=== PATIENT | male | born 1960 | race Caucasian/White ===

== ENCOUNTER 2016-12-16 07:24 | Emergency (ER) | payer BC ==
[2016-12-16] MEDS ORDERED: ERTAPENEM SODIUM 1 G in 0.9 % SODIUM CHLORIDE 100ML 100 ML IVPB ONE (08:05)
[2016-12-16 08:19] LABS: BASO % 0.3 % (0-6); EOS % 2.7 % (0-6); GRAN % 72.4 % (47-80); HEMATOCRIT 45.3 % (42.0-52.0); HEMOGLOBIN 15.2 gm/dl (14.0-18.0); MEAN CELL VOLUME 90.4 fl (81-97); MEAN CORPUSCULAR HEMOGLOBIN 30.3 pg (27-33); MEAN CORPUSCULAR HGB CONC 33.6 g/dl (32-36); MEAN PLATELET VOLUME 9.7 fl (7.4-10.4); MONO % 6.6 % (0-9); PLATELET COUNT 212 K/uL (130-400); RED BLOOD COUNT 5.01 M/uL (4.40-5.70); RED CELL DISTRIBUTION WIDTH 12.9 % (11.5-14.5); WHITE BLOOD COUNT W/O DIFF 6.4 K/uL (4.2-12.2)
--- NOTE | 2016-12-16 08:28 | Emergency Department Record ---
History of Present Illness - General Chief complaint: Abscess Stated complaint: ABSCESS IN GROIN AREA Time Seen by Provider: 12/16/16 07:56 Source: Patient Mode of Arrival: Ambulatory Limitations: No limitations - History of Present Illness Initial comments: pt has had abump [abscess, cyst0 for a year. over the last week it has gotten worse and started draining. it is exquisitely tender. MD complaint: Abscess/boil -: Year(s) Location: Genitals Severity: Severe Severity scale (1-10): 10 Quality: Sharp Consistency: Constant Improves with: None Worsens with: None Context: None Associated symptoms: Denies other symptoms Treatments Prior to Arrival: Antibiotic - Related Data Home Medications Medication Instructions Recorded Confirmed Last Taken Aspirin Chewable [Aspirin] 81 mg PO DAILY 01/23/14 12/16/16 Unknown Fish Oil 10,000 mg PO DAILY 01/23/14 12/16/16 Unknown Multivitamin [Multi-Vitamin Daily] 1 tab PO DAILY 01/23/14 12/16/16 Unknown Omeprazole [Omeprazole] 20 mg PO BID 01/23/14 12/16/16 Unknown Simvastatin [Simvastatin] 40 mg PO DAILY 01/23/14 12/16/16 Unknown Levothyroxine Sodium 150 mcg PO QD tab 01/18/16 12/16/16 Unknown Cephalexin 500 mg PO BID 12/16/16 12/16/16 Unknown Sulfamethoxazole/Trimethoprim 1 tab PO BID 12/16/16 12/16/16 Unknown [Bactrim Ds] Allergies Allergy/AdvReac Type Severity Reaction Status Date / Time No Known Drug Allergies Allergy Verified 12/16/16 07:38 Travel Screening - Travel/Exposure Within Last 30 Days Have you traveled within the last 30 days?: Yes Location Detail:: [place] - Travel Symptoms Symptom Screening: None Review of Systems Reviewed: No additional complaints except as noted below Constitutional: Reports: As per HPI. Denies: Chills, Fever, Malaise, Night sweats, Weakness, Weight change Eyes: Reports: As per HPI. Denies: Eye discharge, Eye pain, Photophobia, Vision change ENT: Reports: As per HPI. Denies: Congestion, Dental pain, Ear pain, Epistaxis , Hearing loss, Throat pain Respiratory: Reports: As per HPI. Denies: Cough, Dyspnea, Hemoptysis, Stridor, Wheezes Cardiovascular: Reports: As per HPI. Denies: Arrhythmia, Chest pain, Dyspnea on exertion, Edema, Murmurs, Orthopnea, Palpitations, Paroxysmal nocturnal dyspnea, Rheumatic Fever, Syncope Endocrine: Reports: As per HPI. Denies: Fatigue, Heat or cold intolerance, Polydipsia, Polyuria Gastrointestinal: Reports: As per HPI. Denies: Abdominal pain, Constipation, Diarrhea, Hematemesis, Hematochezia, Melena, Nausea, Vomiting Genitourinary: Reports: As per HPI. Denies: Dysuria, Frequency, Hematuria, Incontinence, Retention, Testicular pain, Testicular mass, Urgency Musculoskeletal: Reports: As per HPI. Denies: Arthralgia, Back pain, Gout, Joint swelling, Myalgia, Neck pain Skin: Reports: As per HPI. Denies: Bruising, Change in color, Change in hair/ nails, Lesions, Pruritus, Rash Neurological: Reports: As per HPI. Denies: Abnormal gait, Confusion, Headache, Numbness, Paresthesias, Seizure, Tingling, Tremors, Vertigo, Weakness Psychiatric: Reports: As per HPI. Denies: Anxiety, Auditory hallucinations, Depression, Homicidal thoughts, Suicidal thoughts, Visual hallucinations Hematological/Lymphatic: Reports: As per HPI. Denies: Anemia, Blood Clots, Easy bleeding, Easy bruising, Swollen glands Past Medical History - SOCIAL HISTORY Smoking Status: Never smoker Alcohol Use: None Drug Use: None - RESPIRATORY Hx Respiratory Disorders: No - CARDIOVASCULAR Hx Cardio Disorders: No - NEURO Hx Neuro Disorders: No - GI Hx GI Disorders: No - Hx Genitourinary Disorders: No - ENDOCRINE Hx Endocrine Disorders: No - MUSCULOSKELETAL Hx Musculoskeletal Disorders: No - PSYCH Hx Psych Problems: No - HEMATOLOGY/ONCOLOGY Hx Hematology/Oncology Disorders: Yes Hx Cancer: Yes (thyroid) Family Medical History Any Significant Family History?: Yes Hx Diabetes: Father, Mother, Brother/Sister Hx Heart Disease: Father, Mother *Stroke Comment: uncle Physical Exam - General General Appearance: Alert, Oriented x3, Cooperative, Mild distress - Head Head exam: Normal inspection - Eye Eye exam: Normal appearance, PERRL, EOMI Pupils: Normal accommodation - ENT ENT exam: Normal exam, Mucous membranes moist, Normal external ear exam, Normal orophraynx Ear exam: Normal external inspection. negative: External canal tenderness Nasal Exam: Normal inspection. negative: Discharge, Sinus tenderness Mouth exam: Normal external inspection, Tongue normal Teeth exam: Normal inspection. negative: Dental caries Throat exam: Normal inspection. negative: Tonsillar erythema, Tonsillar exudate - Neck Neck exam: Normal inspection, Full ROM. negative: Tenderness - Respiratory Respiratory exam: Normal lung sounds bilaterally. negative: Respiratory distress - Cardiovascular Cardiovascular Exam: Regular rate, Normal rhythm, Normal heart sounds - GI/Abdominal GI/Abdominal exam: Soft, Normal bowel sounds. negative: Tenderness - Rectal Rectal exam: Deferred - exam: Deferred - Extremities Extremities exam: Normal inspection, Full ROM, Normal capillary refill, Tenderness Image of Full Body: 1 - erythema, abscess, draining, exquisitely tender, size of a walnut w surrounding erythema - Back Back exam: Reports: Normal inspection, Full ROM. Denies: Muscle spasm, Rash noted, Tenderness - Neurological Neurological exam: Alert, CN II-XII intact, Normal gait, Oriented X3 - Psychiatric Psychiatric exam: Normal affect, Normal mood - Skin Skin exam: Dry, Intact, Normal color, Warm Course Vital Signs 12/16/16 07:29 Temperature 97.9 F Pulse Rate 68 Respiratory 20 Rate Blood Pressure 128/73 Pulse Ox 94 L - Reevaluation(s) Reevaluation #1: 12/16/16 08:31 dr magallanes called and is taking pt to surgery. Medical Decision Making - Lab Data Result diagrams: 12/16/16 08:12 12/16/16 08:12 Disposition Disposition: Admit Disposition: Still a Patient at [facility] Decision to Admit Date: 12/16/16 Decision to Admit Time: 08:32 Forms: Patient Portal Access
[2016-12-16 08:32] LABS: BLOOD UREA NITROGEN 20 mg/dL (9-20); EST GLOMERULAR FILTRATION RATE > 60 ml/min; GLUCOSE,RANDOM 102 mg/dL (70-110)
--- NOTE | 2016-12-16 13:31 | CT SCAN REPORT ---
EXAM: PELVIS CT WITHOUT CONTRAST HISTORY: LARGE PAINFUL CYST RIGHT GROIN, GETTING WORSE FOR TWO WEEKS. TECHNIQUE: Contiguous axial images from the L4 level to the proximal femora were obtained without IV contrast. Comparison: None. FINDINGS: There is a subcutaneous rounded area of increased attenuation measuring 7 mm in the right inguinal region. There is adjacent inflammatory fat stranding and skin thickening. The finding itself measures 2.1 x 2.3 x 2.6 cm. Mildly prominent right inguinal lymph nodes measuring up to 1.4 cm. No inguinal hernia. Mild aortic calcification. The visualized loops of small and large bowel are of normal caliber. No free intraperitoneal fluid or adenopathy of the pelvis. No lytic or blastic lesions. Moderate arthritic change of the right sacroiliac joint. Advanced arthritic change of the left L5-S1 facets. IMPRESSION: SUBCUTANEOUS HYPODENSE ROUNDED FOCUS IN THE RIGHT INGUINAL REGION WITH ADJACENT INFLAMMATORY FAT STRANDING MEASURING UP TO 2.4 CM WHICH MAY RELATE TO ABSCESS. REACTIVE ADENOPATHY RIGHT INGUINAL REGION. JOB NUMBER: [id number] MTDD
== END 2016-12-16 09:23 | disposition still patient (30) ==
LOC: ER 07:24
DX: L02.214 Cutaneous abscess of groin (principal)
CPT/HCPCS: 72192; 80048; 85025

== ENCOUNTER 2016-12-16 09:28 | Day surgery (SDC) | payer BC ==
[2016-12-16] MEDS ORDERED: ACETAMINOPHEN 1,000 MG/100 ML BTL IV ONE (12:24)
[2016-12-16] MEDS ORDERED: MIDAZOLAM HCL 2MG/2ML VIAL IV ONE (14:00)
[2016-12-16] MEDS ORDERED: BUPIVACAINE 0.25% W/EPI MPF 30ML VIAL IVP ONE (14:00)
[2016-12-16] MEDS ORDERED: ACETAMINOPHEN/CODEINE TABLET PO ONE (14:00)
[2016-12-16] MEDS ORDERED: FENTANYL PF 100MCG/2ML VIAL IV ONE (14:00)
[2016-12-16] MEDS ORDERED: PROPOFOL 10 MG/ML VIAL IV ONE (14:00)
[2016-12-16] MEDS ORDERED: LIDOCAINE 2% MDV (20MG/ML) 20ML VIAL IV ONE (14:00)
--- NOTE | 2016-12-17 12:13 | Operative Note ---
DATE OF SURGERY: 12/16/2016 Surgeon: Alfred Avery DO Referring: Juani Ross MD, FACP PREOPERATIVE DIAGNOSIS: Right inguinal abscess. POSTOPERATIVE DIAGNOSIS: Right inguinal abscess. OPERATION: I&D and debridement of right inguinal abscess. Indication: The patient is a 48-year-old male who states he has had inflamed abscess down here for about a year. This got worse yesterday and therefore he was seen in the ER. CT scan was done which did show a 2.4 cm abscess with surrounding inflammatory changes. He had some mild reactive lymphadenopathy noted as well. The patient states that he had an issue with thyroid cancer a couple years ago and is noted to have a PET scan that this area lit up in the past. Apparently no further investigation was done. PROCEDURE: Therefore, consent was signed, questions answered. He was taken to the Operating Room and placed in the supine position. Local IV sedation was given per the Department of Anesthesia. The patient's groin was shaved and the area prepped and draped in the usual fashion. The area around the abscess was anesthetized with a total of 8 mL of 0.25% Sensorcaine with epinephrine. An elliptical incision was made draining a fairly sizeable abscess cavity. The overlying skin was necrotic and therefore this was debrided. The wound was then irrigated and paced with Iodoform gauze. Culture, aerobic and anaerobic cultures were taken and tissue was sent for culture as well. He will continue the antibiotics he was given yesterday and I will see him back in about 2 weeks. CC: JUANI ROSS MD, FACP [facility]
== END 2016-12-16 13:40 | disposition home or self-care (01) ==
LOC: SUR 09:28
PROVIDERS: ATTEND Surgery
DX: L02.214 Cutaneous abscess of groin (principal); E03.9 Hypothyroidism, unspecified
CPT/HCPCS: 10060; 00400; 99285 ×2; 96365; 85025; 80048; 72192; J1335; J3010

== ENCOUNTER 2017-11-05 07:31 | Day surgery (SDC) | payer BC ==
[2017-11-05] MEDS ORDERED: SEVOFLURANE 250 ML INH ONE (07:32)
[2017-11-05] MEDS ORDERED: BUPIVACAINE 0.5% W/EPI MPF 30 ML VIAL IVP ONE (07:32)
[2017-11-05] MEDS ORDERED: SUCCINYLCHOLINE 20 MG/ML 10ML IVP ONE (07:32)
[2017-11-05] MEDS ORDERED: FENTANYL PF 100MCG/2ML VIAL IV ONE (07:32)
[2017-11-05] MEDS ORDERED: MIDAZOLAM HCL 2MG/2ML VIAL IV ONE (07:32)
[2017-11-05] MEDS ORDERED: PROPOFOL 10 MG/ML VIAL IV ONE (07:32)
[2017-11-05] MEDS ORDERED: ONDANSETRON HCL IV 4 MG/2 ML VIAL IVP ONE ×3 (07:32→12:30)
[2017-11-05] MEDS ORDERED: DEXAMETHASONE 4 MG/ML 1ML VIAL IVP ONE (07:32)
[2017-11-05] MEDS ORDERED: ROCURONIUM BROMIDE 50MG/5ML VIAL IV ONE (07:32)
[2017-11-05] MEDS ORDERED: LIDOCAINE 2% MDV (20MG/ML) 20ML VIAL IV ONE (07:32)
[2017-11-05] MEDS ORDERED: KETOROLAC 30 MG/ML VIAL IVP ONE ×2 (07:32→08:24)
[2017-11-05] MEDS ORDERED: 0.9 % SODIUM CHLORIDE 1,000 ML BAG IV ONE (07:37)
--- NOTE | 2017-11-05 07:43 | Emergency Department Record ---
History of Present Illness - General Chief complaint: Vomiting Stated complaint: VOMITING Time Seen by Provider: 11/05/17 07:36 Source: Patient, Family Mode of Arrival: Ambulatory Limitations: No limitations - History of Present Illness Initial comments: 57 yo male presents with abdominal pain with nausea and vomiting. The onset of the symptoms was about 2am. He states initially he had left sided abdominal pain. This progressed to nausea and vomiting. No diarrhea. No blood in the recent stools. No blood in the vomit. No chest pain or shortness of breath. No back pain. No hematuria. He is very active, exercises and has had no recent changes in his health. No abdominal surgeries. He has had two prior colonoscopies that were "normal" and and EGD. He does have frequent reflux. MD complaint: Abdominal pain, Nausea, Vomiting -: Hour(s) (5) Description of Vomiting: Watery Description of Diarrhea: Other (None) Location: LUQ, Epigastric Radiation: LUQ Severity: Moderate Quality: Aching Consistency: Constant Improves with: None Worsens with: Eating Associated Symptoms: Loss of appetite, Nausea/vomiting - Related Data Allergies Allergy/AdvReac Type Severity Reaction Status Date / Time No Known Drug Allergies Allergy Unverified 04/03/17 18:04 Review of Systems Constitutional: Denies: Chills, Fever, Weakness Eyes: Denies: Eye discharge, Eye pain, Photophobia ENT: Denies: Congestion, Throat pain Respiratory: Denies: Cough, Dyspnea, Hemoptysis, Stridor, Wheezes Cardiovascular: Denies: Chest pain, Palpitations, Syncope Endocrine: Denies: Fatigue, Polydipsia, Polyuria Gastrointestinal: Reports: Abdominal pain, Nausea, Vomiting. Denies: Constipation, Diarrhea, Hematemesis, Hematochezia, Melena Genitourinary: Denies: Dysuria, Frequency, Hematuria Musculoskeletal: Denies: Arthralgia, Back pain, Joint swelling, Myalgia Skin: Denies: Bruising, Change in color, Rash Neurological: Denies: Headache, Numbness, Weakness Psychiatric: Denies: Anxiety Hematological/Lymphatic: Denies: Blood Clots, Easy bleeding, Easy bruising, Swollen glands Past Medical History - SOCIAL HISTORY Smoking Status: Never smoker Drug Use: None - RESPIRATORY Hx Respiratory Disorders: No - CARDIOVASCULAR Hx Cardio Disorders: No - NEURO Hx Neuro Disorders: No - GI Hx GI Disorders: Yes - Hx Genitourinary Disorders: No - ENDOCRINE Hx Endocrine Disorders: Yes - MUSCULOSKELETAL Hx Musculoskeletal Disorders: Yes - PSYCH Hx Psych Problems: No - HEMATOLOGY/ONCOLOGY Hx Hematology/Oncology Disorders: Yes Hx Cancer: Yes (thyroid) Family Medical History Hx Diabetes: Father, Mother, Brother/Sister Hx Heart Disease: Father, Mother *Stroke Comment: uncle Physical Exam - General General Appearance: Alert, Oriented x3, Cooperative, No acute distress Limitations: No limitations - Head Head exam: Atraumatic, Normal inspection - Eye Eye exam: Normal appearance, PERRL. negative: Conjunctival injection, Scleral icterus - ENT ENT exam: Normal exam, Mucous membranes moist Ear exam: Normal external inspection Nasal Exam: Normal inspection Mouth exam: Normal external inspection - Neck Neck exam: Normal inspection, Full ROM. negative: Tenderness - Respiratory Respiratory exam: Normal lung sounds bilaterally. negative: Respiratory distress, Rhonchi, Stridor, Wheezes - Cardiovascular Cardiovascular Exam: Regular rate, Normal rhythm, Normal heart sounds - GI/Abdominal GI/Abdominal exam: Soft, Tenderness (the abdomen is soft but tender in the LUQ and left lateral to the umbilicus). negative: Distended, Guarding, Rebound, Rigid - Rectal Rectal exam: Deferred - exam: Deferred - Extremities Extremities exam: Normal inspection, Full ROM, Normal capillary refill. negative: Tenderness - Back Back exam: Reports: Normal inspection, Full ROM. Denies: CVA tenderness (R), CVA tenderness (L), Muscle spasm, Rash noted, Tenderness - Neurological Neurological exam: Alert, Normal gait, Oriented X3 - Psychiatric Psychiatric exam: Normal affect, Normal mood - Skin Skin exam: Dry, Intact, Normal color, Warm Course - Reevaluation(s) Reevaluation #1: The CBC was reviewed The WBC count is 14.5 with 89% N Pain still persists on the L side. The patient declines the need for additional pain medication at this time. 11/05/17 08:11 11/05/17 08:17 No acute changes on the CMP or Lipase Nausea is improved, left sided pain persists 11/05/17 08:52 The UA was positive for Ketones otherwise negative The nausea is gone, He is tender LUQ to LLQ otherwise soft. He declined additional pain medication. 11/05/17 10:[address] scan is consistent with acute appendicitis with dilated fluid filled appendix at 13mm with surrounding inflammation. No FF or abscess Invanz ordered Dr Gena kulkarni from . Medical Decision Making - Lab Data Result diagrams: 11/05/17 07:45 11/05/17 07:45 Disposition Disposition: Discharge Clinical Impression: Appendicitis Qualifiers: Appendicitis type: acute appendicitis Acute appendicitis type: with localized peritonitis Qualified Code(s): K35.3 - Acute appendicitis with localized peritonitis Disposition: Still a Patient at [facility] Condition: (1) Good Additional Instructions: You are discharged to same day surgery for your appendicitis Forms: Patient Portal Access Time of Disposition: 12:18 Quality - Quality Measures Quality Measures: N/A - Blood Pressure Screening Does Patient Have Any of the Following: No Blood Pressure Classification: Pre-Hypertensive BP Reading Systolic Measurement: 127 Diastolic Measurement: 71 Screening for High Blood Pressure: < Pre-Hypertensive BP, F/U Documented > [ [id number]] Pre-Hypertensive Follow-up Interventions: Referral to alternative/primary care provider.
[2017-11-05] MEDS ORDERED: ACETAMINOPHEN 1,000 MG/100 ML BTL IVPB ONE (07:45)
[2017-11-05 07:57] LABS: HEMATOCRIT 46.9 % (42.0-52.0); MEAN CELL VOLUME 89.2 fl (81-97); MEAN CORPUSCULAR HEMOGLOBIN 30.4 pg (27-33); MEAN CORPUSCULAR HGB CONC 34.1 g/dl (32-36); PLATELET COUNT 226 K/uL (130-400); RED BLOOD COUNT 5.26 M/uL (4.40-5.70); RED CELL DISTRIBUTION WIDTH 13.4 % (11.5-14.5); WHITE BLOOD COUNT W/O DIFF 14.5 K/uL (4.2-12.2)
[2017-11-05 08:06] LABS: PLATELET ESTIMATE NORMAL (NORMAL)
[2017-11-05 08:07] LABS: TOXIC GRANULATION 2+
[2017-11-05 08:08] LABS: BLOOD UREA NITROGEN 17 mg/dL (6-20); CREATININE 0.9 mg/dL (0.7-1.2); EST GLOMERULAR FILTRATION RATE > 60 mL/min
[2017-11-05 08:10] LABS: GLUCOSE,RANDOM 175 mg/dL (74-109)
[2017-11-05 08:13] LABS: ALB/GLOB RATIO 1.6 (1.1-1.8); ALBUMIN 4.3 g/dL (4.0-5.0); ALKALINE PHOSPHATASE 59 U/L (40-129); ALT/SGPT 25 U/L (<41); AST/SGOT 22 U/L (10.0-50.0); LIPASE 26 U/L (13-60)
[2017-11-05 08:30] LABS: URINE APPEARANCE CLEAR; URINE BILIRUBIN NEGATIVE (NEGATIVE); URINE BLOOD NEGATIVE (NEGATIVE); URINE COLOR YELLOW; URINE GLUCOSE (UA) NEGATIVE (NEGATIVE); URINE KETONE 40 mg/dL (NEGATIVE); URINE LEUKOCYTE ESTERASE NEGATIVE (NEGATIVE); URINE NITRITE NEGATIVE (NEGATIVE); URINE PROTEIN NEGATIVE (NEGATIVE); URINE UROBILINOGEN 0.2 E.U./dL (0.20 - 1.00)
[2017-11-05] MEDS ORDERED: 0.9 % SODIUM CHLORIDE 1000ML 1,000 ML IV ONE (10:41)
[2017-11-05] MEDS ORDERED: ERTAPENEM SODIUM 1 G in 0.9 % SODIUM CHLORIDE 100ML 100 ML IVPB ONE (10:41)
[2017-11-05] MEDS ORDERED: FENTANYL PF 100MCG/2ML VIAL IVP ONE (12:30)
--- NOTE | 2017-11-06 09:16 | CT SCAN REPORT ---
EXAM: CT OF THE ABDOMEN AND PELVIS HISTORY: PAIN. TECHNIQUE: CT of the abdomen and pelvis was performed following IV administration of 100 ml of Omnipaque 300 contrast. Oral contrast was also utilized. Comparison: CT of the pelvis 12/16/16. FINDINGS: Limited evaluation of the lung bases is unremarkable. The osseous structures are grossly intact. Small hiatal hernia. The liver, spleen, adrenal glands, and pancreas are unremarkable. Punctate densities associated with the kidneys bilaterally may reflect early excretion of contrast versus nonobstructing renal calculi. Bilateral renal cysts are also noted. The kidneys are otherwise unremarkable. No evidence for bowel obstruction. There is an abnormal, thick walled fluid filled appendix with adjacent inflammation consistent with appendicitis. The appendix measures 13.3 mm in diameter. No periappendiceal abscess. No free air or free fluid. The prostate is enlarged. Correlate with PSA levels. Occasional sigmoid diverticula. No CT evidence for diverticulitis. Mild atheromatous change. IMPRESSION: 1. ACUTE APPENDICITIS. NO PERIAPPENDICEAL ABSCESS, FREE AIR OR FREE FLUID. 2. OCCASIONAL SIGMOID DIVERTICULA. NO CT EVIDENCE FOR DIVERTICULITIS. 3. ENLARGEMENT OF THE PROSTATE. CORRELATE WITH PSA LEVELS. 4. BILATERAL RENAL CYSTS. QUESTIONABLE PUNCTATE NONOBSTRUCTING RENAL CALCULI BILATERALLY. JOB NUMBER: [id number] [facility]
--- NOTE | 2017-11-07 09:10 | History and Physical Report ---
DATE OF ADMISSION: 11/05/2017 CHIEF COMPLAINT: Abdominal pain. HISTORY OF CHIEF COMPLAINT: The patient is a 57-year-old male who has had about a 24-hour history of abdominal pain. This settled in his right lower quadrant. He was seen at [facility] ER where a full workup was done. This did show an elevated white blood cell count as well as CT scan which did show findings consistent with acute appendicitis. PAST MEDICAL HISTORY: Significant for hypercholesterolemia. 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 CURRENT MEDICATIONS: 1. Simvastatin. 2. Fish oil. 3. Omeprazole. ALLERGIES: No known medical allergies. SOCIAL HISTORY: He denies any tobacco or alcohol usage. PHYSICAL EXAMINATION: VITAL SIGNS: Stable. He is afebrile. HEART: Regular. LUNGS: Clear. ABDOMEN: Soft. There is right lower quadrant tenderness. There is a Rovsing sign noted. IMPRESSION: Acute appendicitis. PLAN: We will schedule him for a laparoscopic appendectomy. Risks include bleeding, infection, postop abscess, and wound infection. He understands this fully. He is in the midst of training for a bike race, which he will have to take it easy for a week or so afterwards, and he understands this fully. Thank you for this referral. PAIGE
--- NOTE | 2017-11-07 12:42 | Operative Note ---
DATE OF SURGERY: 11/05/2017 Surgeon: Alfred Avery DO PREOPERATIVE DIAGNOSIS: Acute appendicitis. POSTOPERATIVE DIAGNOSIS: Acute appendicitis. OPERATION: Laparoscopic appendectomy. Indication: The patient is a 57-year-old male who presented to the [facility] with pain in the right lower quadrant. CT scan findings were consistent with acute appendicitis. Clinical exam fit the same. Risks, benefits, and alternatives were discussed. Risks include but are not limited to bleeding, infection, postop abscess formation. He understood this fully. PROCEDURE: Thereafter, consent was signed and questions answered. The patient was taken to the operating room and placed in a supine position. General anesthesia was administered per the department of anesthesia. The patient's left arm was tucked to the side. Abdomen was shaved of hair and prepped and draped in the usual fashion. At this time, adequate timeout was performed. He did receive preoperative DVT prophylaxis as well as antibiotic. At this time, the infraumbilical region was anesthetized with a total of 4 mL of 0.25% Sensorcaine with epinephrine. A 2 cm infraumbilical incision was made. This was carried down to the anterior rectus fascia. This was incised. Margarita clamps were placed on the fascial edges and brought up into the wound. Stay sutures of 0 Vicryl were placed. Posterior rectus sheath was identified and incised. The peritoneal cavity was entered bluntly. At this time, a 10 mm blunt Javier port was placed. Adequate pneumoperitoneum established. Under direct visualization, additional 5 mm right subcostal and 5 mm suprapubic ports were placed. The patient was then rotated into steep Trendelenburg, rotation to left. The appendix located in the right mid abdomen. It had purulent fluid surrounding it. There was no evidence of any rupture. This was lifted anteriorly. The mesoappendix was taken down serially to the base of the appendix. At this time, an Endo-PANDA 45 mm stapling device was used to transect the appendix at the junction of the cecum. This was then placed in an EndoCatch bag and brought out infraumbilically. The right lower quadrant was then irrigated with approximately 200 mL of sterile saline. There was no bleeding noted. No additional purulent fluid noted. No bowel injury noted. The rest of the external exam, the small and large bowel and liver appeared normal. The patient was leveled out. Pneumoperitoneum was released. All ports were removed. The fascia was closed with 0 Vicryl in a [id number]-[id number] fashion. The skin of all 3 ports was closed with 4-0 Vicryl. He was taken to the recovery room in satisfactory condition. FINDINGS ON SURGERY: Acute appendicitis. Final pathology pending. CC: JUANI STOKES MD, FACP [facility]
== END 2017-11-05 15:45 | disposition home or self-care (01) ==
LOC: ER 07:31 → SUR 07:31 → EDSTATUS 08:45 → SUR 13:03 → ER 13:03 → EDSTATUS 13:48 → SUR 15:45
PROVIDERS: ATTEND Surgery
DX: K35.80 Unspecified acute appendicitis (principal); E78.00 Pure hypercholesterolemia, unspecified
CPT/HCPCS: 74177; 80053; 81003; 83690; 85027; 93005; 96361; 96374; 96375; 96376; 99285; J0330; J1885; J2405; J7030